=== PATIENT | female | born 1995 | race Caucasian/White ===

== ENCOUNTER 2018-10-27 20:18 | Emergency (ER) | payer BC ==
[~2018-10-27] VITALS: Ht 170.2 cm; Wt 56.7 kg
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
--- NOTE | 2018-10-27 21:23 | NUR ---
Pt ambulatory w/ steady gait to restroom w/ resp even & unlabored, nad noted.
--- NOTE | 2018-10-27 21:32 | NUR ---
Dr. Shi at bedside for further eval.
[2018-10-27] MEDS ORDERED: HYDROCODONE/APAP 5/325MG 1 EACH TABLET ONE (21:40)
[2018-10-27] MEDS ORDERED: HYDROCODONE/APAP 5/325MG 1 EACH TABLET PO ONE (22:00)
--- NOTE | 2018-10-27 22:09 | NUR ---
CXR at bedside.
--- NOTE | 2018-10-27 22:35 | NUR ---
pt sitting up in bed w/ resp even & unlabored, nad noted. Bed low to the ground w/ siderails up for safety, on continuous monitoring. Awaiting CXR results.
--- NOTE | 2018-10-27 23:01 | NUR ---
Pt medically cleared by Dr. Shi and discharged to home in stable condition. Patient discharged to home in stable condition. Written and verbal after care instructions given. Patient verbalizes understanding of instruction. Pt ambulatory w/ steady gait w/ resp even & unlabored, nad noted.
[2018-10-27 23:13] VITALS: BP 116/68
== END 2018-10-27 23:03 | disposition home or self-care (01) ==
LOC: ER 20:25
DX: S20.20XA Contusion of thorax, unspecified, initial encounter (principal); W05.1XXA Fall from non-moving nonmotorized scooter, initial encounter; Y93.89 Activity, other specified; Y92.89 Other specified places as the place of occurrence of the external cause; Y99.8 Other external cause status
CPT/HCPCS: 71046; 99283; A4606; Z7610

== ENCOUNTER 2023-06-15 | Emergency (ER) | payer BC, MEDICAID ==
[~2023-06-15] VITALS: Ht 167.6 cm; Wt 46.7 kg
[2023-06-15] MEDS ORDERED: CYCLOBENZAPRINE 10 MG TABLET PO ONE (01:00)
[2023-06-15] MEDS ORDERED: KETOROLAC TROMETHAMINE INJ 30 MG/ML VIAL IM ONE (01:00)
[2023-06-15] MEDS ORDERED: CYCLOBENZAPRINE 10 MG TABLET ONE (01:02)
[2023-06-15] MEDS ORDERED: KETOROLAC TROMETHAMINE INJ 30 MG/ML VIAL ONE (01:02)
[2023-06-15 01:21] VITALS: BP 121/78; TEMP 98.2; O2SAT 99
== END 2023-06-15 01:21 | disposition home or self-care (01) ==
LOC: ER 00:09
DX: M54.42 Lumbago with sciatica, left side (principal); Z91.011 Allergy to milk products
CPT/HCPCS: 72131-TC; J1885